=== PATIENT | female | born 1960 | race Caucasian/White ===

== ENCOUNTER 2021-03-07 10:43 | Outpatient (REF) | payer BC, SELFPAY ==
--- NOTE | ~2021-03-07 | MM_ITS ---
EXAMINATION: MM SCREENING DIGITAL BREAST TOMOSYNTHESIS, BILATERAL CLINICAL INFORMATION: Screening. Asymptomatic. The lifetime risk of breast cancer based on the Tyrer-Cuzick Model is 12%. COMPARISON: Mammography: 02/23/2020, 01/30/2019, 01/08/2018, 11/28/2016 TECHNIQUE: Digital breast tomosynthesis is performed in both the craniocaudal and mediolateral oblique views along with computer-aided detection (CAD). Synthesized 2D images are generated from the tomosynthesis. FINDINGS: There are scattered areas of fibroglandular density (ACR BI-RADS breast composition Category b). There are no significant masses, abnormal calcifications, or other abnormalities. There are tightly grouped chronic coarse calcifications right axilla again noted, possibly dermal, similar to prior studies. Skin contours are smooth. No significant changes. MM/MM tomosynthesis screening BI IMPRESSION: No significant changes from prior exams. ASSESSMENT: BI-RADS 2: Benign RECOMMENDATION: Routine annual mammography screening. This patient's information was entered into a reminder system with a target due date for their next mammogram.
== END 2021-03-07 10:44 | disposition home or self-care (01) ==
LOC: HO.MAMMO 10:43
PROVIDERS: Visit Provider Internal Medicine
DX: Z12.31 Encounter for screening mammogram for malignant neoplasm of breast (principal)
CPT/HCPCS: 77063; 77067

== ENCOUNTER 2021-07-01 12:33 | Outpatient (REF) | payer BC, SELFPAY ==
[2021-07-01 13:53] LABS: MANUAL DIFF FLAG NO
[2021-07-01 13:55] LABS: Appearance Urine CLEAR; Color Urine YELLOW; Glucose Urine UA NEG (NEG); Leukocyte Esterase Urine NEG (NEG); Nitrite Urine NEG (NEG); Specific Gravity - Urine 1.025 (1.005-1.025); Urine Blood NEG (NEG); Urine Ketones NEG (NEG); Urine Protein NEG (NEG-TRACE)
[2021-07-01 14:02] LABS: Basophils Percent Auto 0.9 % (0-2); Eosinophils Absolute Auto 0.2 X10*3/uL (0.0-0.4); Eosinophils Percent Auto 4.3 % (0-4); Hematocrit 36.9 % (37.0-47.0); Hemoglobin 12.2 g/dl (12.0-16.0); Imm Gran Abs Auto 0.02 X10*3/uL (0.00-0.03); Imm Gran Pct Auto 0.5 % (0.0-0.4); Lymphocytes Absolute Auto 1.6 X10*3/uL (1.2-4.9); Lymphocytes Percent Auto 35.8 % (20-40); Mean Corpuscular HGB Conc 33.1 g/dl (31.0-35.0); Mean Corpuscular Hemoglobin 29.3 pg (27.0-33.0); Mean Corpuscular Volume 88.5 fL (80.0-98.0); Mean Platelet Volume 9.5 fL (9.4-12.3); Monocytes Absolute Auto 0.4 X10*3/uL (0.1-1.2); Neutrophils Absolute Auto 2.2 x10*3/uL (2.0-8.3); Neutrophils Percent Auto 50.5 % (45-73); Platelet Count 255 X10*3/uL (160-400); Red Blood Count 4.17 X10*6/uL (4.20-5.50); Red Cell Distribution Width 11.8 % (11.0-16.0); White Blood Count 4.4 X10*3/uL (4.8-10.8)
[2021-07-01 14:28] LABS: Alanine Aminotransferase 14 U/L (0-31); Albumin Level 4.2 g/dL (3.5-5.0); Alkaline Phosphatase 56 U/L (39-117); Anion Gap 11 (12-20); Aspartate Amino Transferase 21 U/L (5-31); Bilirubin Total 0.4 mg/dL (0.0-1.0); Blood Urea Nitrogen 11 mg/dL (9-16); Calcium 9.3 mg/dL (8.4-10.2); Carbon Dioxide 27 mmol/L (22-29); Chloride 107 mmol/L (96-108); Cholesterol 206 mg/dL; Estimated Glomerular Filt Rate > 60; Glucose Fasting 75 mg/dL (60-99); Sodium 141 mmol/L (135-145); Total Protein 6.9 g/dL (6.5-8.0); Triglycerides 61 mg/dL
[2021-07-01 14:36] LABS: Free T4 (Free Thyroxine) 1.06 ng/dL (0.71-1.85); Thyroid Stimulating Hormone 0.93 uIU/mL (0.32-4.0); Vitamin D 25-OH Total 28.9 ng/mL (>30)
[2021-07-01 14:41] LABS: HDL Cholesterol 58 mg/dL; LDL Cholesterol Calculated 136 mg/dl
== END 2021-07-01 12:34 | disposition home or self-care (01) ==
LOC: HO.10HDL 12:33
PROVIDERS: Visit Provider Internal Medicine
DX: Z00.00 Encounter for general adult medical examination without abnormal findings (principal); E03.9 Hypothyroidism, unspecified; D64.9 Anemia, unspecified; K21.9 Gastro-esophageal reflux disease without esophagitis
CPT/HCPCS: 36415; 80053; 80061; 81003; 82306; 84439; 84443; 85025

== ENCOUNTER 2022-03-09 10:14 | Outpatient (REF) | payer BC, SELFPAY ==
--- NOTE | ~2022-03-09 | MM_ITS ---
EXAMINATION: MM SCREENING DIGITAL BREAST TOMOSYNTHESIS, BILATERAL CLINICAL INFORMATION: Screening. Asymptomatic. The lifetime risk of breast cancer based on the Tyrer-Cuzick Model is 16%. COMPARISON: Mammography: 03/07/2021, 02/23/2020, 01/30/2019 TECHNIQUE: Digital breast tomosynthesis is performed in both the craniocaudal and mediolateral oblique views along with computer-aided detection (CAD). Synthesized 2D images are generated from the tomosynthesis. FINDINGS: There are scattered areas of fibroglandular density (ACR BI-RADS breast composition Category b). There are no significant masses, abnormal calcifications, or other abnormalities. Parenchymal pattern is similar to prior exams. There are tightly grouped chronic coarse calcifications again seen overlying right axilla, possibly dermal. The skin contours are smooth. There are no significant changes. MM/MM tomosynthesis screening BI IMPRESSION: No mammographic evidence of malignancy. ASSESSMENT: BI-RADS 2: Benign RECOMMENDATION: Routine annual mammography screening. This patient's information was entered into a reminder system with a target due date for their next mammogram.
== END 2022-03-09 10:15 | disposition home or self-care (01) ==
LOC: HO.MAMMO 10:14
PROVIDERS: Visit Provider Internal Medicine
DX: Z12.31 Encounter for screening mammogram for malignant neoplasm of breast (principal)
CPT/HCPCS: 77063; 77067

== ENCOUNTER 2022-05-24 16:23 | Outpatient (REF) | payer BC, SELFPAY ==
--- NOTE | ~2022-05-24 | XR_ITS ---
EXAMINATION: XR SHOULDER, RIGHT CLINICAL INFORMATION: Pain COMPARISON: Previous x-ray September 2015 TECHNIQUE: AP external rotation, Grashey, scapular Y, and axillary views of the right shoulder. FINDINGS: Bone alignment is normal. No fracture or dislocation. Small inferior osteophyte at the glenohumeral joint. Mild arthritis at the acromioclavicular joint with joint space narrowing and osteophyte formation. Normal soft tissues. XR/XR shoulder RT min 2V IMPRESSION: Mild degenerative changes.
== END 2022-05-24 16:24 | disposition home or self-care (01) ==
LOC: HO.XRAY 16:23
PROVIDERS: PCP Internal Medicine; Visit Provider Internal Medicine
DX: M25.511 Pain in right shoulder (principal)
CPT/HCPCS: 73030

== ENCOUNTER 2022-07-26 10:10 | Outpatient (REF) | payer BC, SELFPAY ==
[2022-07-26 10:21] LABS: MANUAL DIFF FLAG NO
[2022-07-26 10:46] LABS: Basophils Percent Auto 0.8 % (0-2); Eosinophils Absolute Auto 0.3 X10*3/uL (0.0-0.4); Eosinophils Percent Auto 6.7 % (0-4); Hematocrit 37.5 % (37.0-47.0); Hemoglobin 12.4 g/dl (12.0-16.0); Imm Gran Abs Auto 0.01 X10*3/uL (0.00-0.03); Imm Gran Pct Auto 0.2 % (0.0-0.4); Lymphocytes Absolute Auto 1.7 X10*3/uL (1.2-4.9); Lymphocytes Percent Auto 35.9 % (20-40); Mean Corpuscular HGB Conc 33.1 g/dl (31.0-35.0); Mean Corpuscular Hemoglobin 29.1 pg (27.0-33.0); Mean Platelet Volume 8.6 fL (9.4-12.3); Monocytes Absolute Auto 0.4 X10*3/uL (0.1-1.2); Neutrophils Absolute Auto 2.3 x10*3/uL (2.0-8.3); Neutrophils Percent Auto 48.4 % (45-73); Platelet Count 249 X10*3/uL (160-400); Red Blood Count 4.26 X10*6/uL (4.20-5.50); Red Cell Distribution Width 11.9 % (11.0-16.0); White Blood Count 4.8 X10*3/uL (4.8-10.8)
[2022-07-26 11:14] LABS: Alanine Aminotransferase 13 U/L (0-31); Albumin Level 4.4 g/dL (3.5-5.0); Alkaline Phosphatase 59 U/L (39-117); Anion Gap 9 (12-20); Aspartate Amino Transferase 22 U/L (5-31); Bilirubin Total 0.3 mg/dL (0.0-1.0); Blood Urea Nitrogen 14 mg/dL (9-16); Calcium 9.5 mg/dL (8.4-10.2); Carbon Dioxide 30 mmol/L (22-29); Chloride 106 mmol/L (96-108); Cholesterol 236 mg/dL; Estimated Glomerular Filt Rate > 60; Glucose Fasting 79 mg/dL (60-99); HDL Cholesterol 60 mg/dL; LDL Cholesterol Calculated 162 mg/dl; Potassium 4.1 mmol/L (3.3-5.1); Sodium 141 mmol/L (135-145); Total Protein 7.2 g/dL (6.5-8.0); Triglycerides 73 mg/dL
[2022-07-26 11:30] LABS: Thyroid Stimulating Hormone 1.69 uIU/mL (0.32-4.0)
== END 2022-07-26 10:11 | disposition home or self-care (01) ==
LOC: HO.LAB 10:10
PROVIDERS: PCP Internal Medicine; Visit Provider Internal Medicine
DX: Z00.00 Encounter for general adult medical examination without abnormal findings (principal); E03.9 Hypothyroidism, unspecified
CPT/HCPCS: 36415; 80053; 80061; 84439; 84443; 85025

== ENCOUNTER 2022-10-04 07:13 | Day surgery (SDC) | payer BC, SELFPAY ==
--- NOTE | 2022-10-03 09:55 | HO.ANESPROP2 ---
Documented by User: Angela Muñoz NP 10/03/22 09:57 HPI - Anesthesia Eval Consult details Narrative: 61yo F for Upper Endoscopy and Colonoscopy [facility] Past Medical History Medical History (Updated 10/04/22 @ 07:23 by Di Wilkerson) Acephalgic migraine Asthma GERD (gastroesophageal reflux disease) Hiatal hernia Hx of sigmoidoscopy Hypothyroidism Irritable bowel disease Lipoma of arm Surgical History Surgical History (Updated 10/04/22 @ 07:23 by Di Wilkerson) History of bunionectomy History of nasal surgery Hx of colonoscopy Hx of endoscopy Hx of knee surgery Hx of tonsillectomy Social History Social History Patient Tobacco Use Status: Never used Tobacco Use of substances other than those prescribed or required for medical reasons: No Are you DNR?: No Advance Directives: No Advance Directives Information Provided: Yes Meds Allergies Allergy/AdvReac Type Severity Reaction Status Date / Time adhesive tape Allergy Unknown Rash Verified 10/04/22 07:28 Chocolate Allergy Unknown Itching Verified 10/04/22 07:28 melon Allergy Unknown Itching Verified 10/04/22 07:28 raw vegetable Allergy Unknown Itching Verified 10/04/22 07:28 Home Medications Medication Instructions Recorded Confirmed Last Taken Type Glucosamine 1 tab PO DAILY 10/03/22 10/04/22 Unknown History Nexium 1 tab PO USEASDIRECTD 10/03/22 10/04/22 Unknown History Zyrtec 1 tab PO DAILY 10/03/22 10/04/22 Unknown History aspirin 1 tab PO DAILY 10/03/22 10/04/22 09/27/22 History famotidine 1 tab PO BID 10/03/22 10/04/22 Unknown History hyoscyamine sulfate 0.125 mg 1 tab sublingual Q4H 10/03/22 10/04/22 Unknown History sublingual tablet levothyroxine 88 mcg tablet 1 tab PO DAILY 10/03/22 10/04/22 Unknown History (Synthroid) montelukast 10 mg tablet 1 tab PO DAILY 10/03/22 10/04/22 Unknown History Exam Exam Date and Time: October 03, 2022 09 Pertinent Lab Results Pertinent Lab Results: Laboratory Tests 07/26/22 07/26/22 10:19 10:19 WBC 4.8 Hgb 12.4 Hct 37.5 Plt Count 249 Sodium 141 Potassium 4.1 Chloride 106 Carbon Dioxide 30 H BUN 14 Creatinine 0.75 Assessment and Plan Assessment Anesthesia Assessment: Chart Reviewed Documented by User: Dyllan Ricardo MD 10/04/22 16:09 [facility] Past Medical History Medical History (Updated 10/04/22 @ 07:23 by Di Wilkerson) Acephalgic migraine Asthma GERD (gastroesophageal reflux disease) Hiatal hernia Hx of sigmoidoscopy Hypothyroidism Irritable bowel disease Lipoma of arm Functional capacity: independent ambulation Family History Family history of problems with anesthesia: No Surgical History Surgical History (Updated 10/04/22 @ 07:23 by Di Wilkerson) History of bunionectomy History of nasal surgery Hx of colonoscopy Hx of endoscopy Hx of knee surgery Hx of tonsillectomy History of Problems with Anesthesia: No Social History Social History Patient Tobacco Use Status: Never used Tobacco Use of substances other than those prescribed or required for medical reasons: No Are you DNR?: No Advance Directives: No Advance Directives Information Provided: Yes Meds Allergies Allergy/AdvReac Type Severity Reaction Status Date / Time adhesive tape Allergy Unknown Rash Verified 10/04/22 07:28 Chocolate Allergy Unknown Itching Verified 10/04/22 07:28 melon Allergy Unknown Itching Verified 10/04/22 07:28 raw vegetable Allergy Unknown Itching Verified 10/04/22 07:28 Home Medications Medication Instructions Recorded Confirmed Last Taken Type Glucosamine 1 tab PO DAILY 10/03/22 10/04/22 Unknown History Nexium 1 tab PO USEASDIRECTD 10/03/22 10/04/22 Unknown History Zyrtec 1 tab PO DAILY 10/03/22 10/04/22 Unknown History aspirin 1 tab PO DAILY 10/03/22 10/04/22 09/27/22 History famotidine 1 tab PO BID 10/03/22 10/04/22 Unknown History hyoscyamine sulfate 0.125 mg 1 tab sublingual Q4H 10/03/22 10/04/22 Unknown History sublingual tablet levothyroxine 88 mcg tablet 1 tab PO DAILY 10/03/22 10/04/22 Unknown History (Synthroid) montelukast 10 mg tablet 1 tab PO DAILY 10/03/22 10/04/22 Unknown History Exam Airway Mallampati Class: II TM Dist: >3cm Neck ROM: Full Loose/Missing/Broken Teeth: Yes ([place] , fillings ) Heart: S1,S2 Lungs: b/l breath sounds Assessment and Plan Assessment Anesthesia Assessment: Anesthesia Plan Discussed Final Anesthetic Review Family History of Problems with Anesthesia: No History of Problems with Anesthesia: No NPO: Yes ASA Class: II Final Preanesthetic Review: Meds/Allgs Chart Reviewed, Consent Obtained/Reviewed and Anes Risks/Benef Reviewed Patient Risk: Intermediate Procedure Risk: Intermediate Anesthetic Plan Anesthetic Plan: MAC: Disposition: Standard PACU
[2022-10-04 07:30] VITALS: BMI 22.3
[2022-10-04 07:38] VITALS: BP 123/75; PULSE 73; RESP 16; TEMP 36.1; O2SAT 97
[2022-10-04] MEDS: Lactated Ringers 1,000 ML 100 ML IVCONT (07:57)
[2022-10-04 09:54] VITALS: BP 102/64; PULSE 72; RESP 16; TEMP 36.6; O2SAT 98
--- NOTE | 2022-10-04 09:55 | P.BOP_ITS ---
Brief Operative Note Date of Service: 10/04/22 Pre-op diagnosis: GERD, Screening Post-op diagnosis: other (Hiatal hernia, Diverticulosis) Procedure: EGD with biopsies, Colonoscopy to the cecum Surgeon: Armando Barboza Anesthesia: MAC Was an Admission Specialist used for this Procedure?: No Estimated blood loss (mL): 2.0 Pathology: other (A. EG Junction at 38cm) Condition: stable Disposition: PACU
[2022-10-04 10:09] VITALS: BP 118/64; PULSE 69; RESP 16; TEMP 36.6; O2SAT 100
--- NOTE | 2022-10-04 20:24 | OP_ITS ---
SURGEON: Armando Barboza MD INDICATIONS: The patient presents for evaluation of gastroesophageal reflux and colorectal cancer screening. Full consent has been obtained from her for this, including risks of bleeding and perforation. PREOPERATIVE DIAGNOSIS: POSTOPERATIVE DIAGNOSIS: PROCEDURE PERFORMED: Esophagogastroduodenoscopy with biopsies, and colonoscopy to the cecum. ESTIMATED BLOOD LOSS: COMPLICATIONS: ANESTHESIA: Medication used, monitored anesthesia care. ASSISTANTS: SPECIMENS: PREOPERATIVE DIAGNOSES: Gastroesophageal reflux and colorectal cancer screening. POSTOPERATIVE DIAGNOSES: Gastroesophageal reflux and colorectal cancer screening, small hiatal hernia, mild diverticulosis, and small internal hemorrhoids. DESCRIPTION OF PROCEDURE: The patient was placed in the left lateral decubitus position. The Olympus video gastroscope was passed in the posterior oropharynx and upper esophagus under direct vision. The scope was passed slowly to the distal esophagus. The gastroesophageal junction appeared at 38 cm. There is very minimal irregularity consistent with reflux, but no evidence of esophagitis nor Lopez's mucosa. There is a small hiatal hernia. The scope was advanced to the pylorus and the duodenum was cannulated to the descending portion. The duodenum including the bulb appeared normal without mass or ulceration. The scope was withdrawn back into the stomach. The gastric antrum and body appeared normal with good peristalsis. The scope was retroflexed visualizing the proximal stomach carefully, which appeared normal, without any sign of mass or ulceration. The scope was straightened out and withdrawn back in the esophagus. Biopsies were obtained at the EG junction at 38 cm. Proximal to that, the esophageal mucosa appeared normal. The scope was withdrawn from the patient. She was turned around for the colonoscopy. The digital rectal exam revealed no abnormalities. The Olympus video pediatric colonoscope was entered into the rectum and advanced easily to the cecum. Once in the cecum, I did identify normal-appearing cecal pouch with appendiceal orifice and a normal-appearing ileocecal valve. The entire cecum and ileocecal valve appeared normal. There was transillumination of light deep in the right lower quadrant. The scope was slowly withdrawn assessing all mucosal surfaces carefully. Preparation was excellent. I did not visualize any sign of polyps, colitis nor angiodysplasia. There was a mild amount of sigmoid diverticulosis. In the rectum, the scope was retroflexed visualizing small internal hemorrhoids, but no other pathology. The rectal mucosa appeared normal. The scope was straightened out and withdrawn from the patient. She tolerated the procedures well and was returned to the recovery area in stable condition. IMPRESSION: 1. Small hiatal hernia, gastroesophageal reflux. 2. Mild diverticulosis. 3. Small internal hemorrhoids. PLAN: The results of the biopsies will be checked. She has been advised that she could continue her Nexium or famotidine for reflux on a long-term basis. She will continue hyoscyamine for the irritable bowel syndrome. I would recommend a repeat colonoscopy in 10 years for further screening. She will otherwise see me on a p.r.n. basis. This has been discussed with her . MD GABINO Jara/VIANNEY / [id number] MTDD
== END 2022-10-04 10:56 | disposition home or self-care (01) ==
PROVIDERS: PCP Internal Medicine; Visit Provider Internal Medicine
PROC: (CPT 45378; principal; 2022-10-04 08:30)
DX: Z12.11 Encounter for screening for malignant neoplasm of colon (principal); Z83.71 Family history of colonic polyps; K57.30 Diverticulosis of large intestine without perforation or abscess without bleeding; K64.8 Other hemorrhoids; K21.9 Gastro-esophageal reflux disease without esophagitis; K44.9 Diaphragmatic hernia without obstruction or gangrene; K58.9 Irritable bowel syndrome, unspecified; E03.9 Hypothyroidism, unspecified; G43.809 Other migraine, not intractable, without status migrainosus; J45.909 Unspecified asthma, uncomplicated; Z79.51 Long term (current) use of inhaled steroids; Z79.82 Long term (current) use of aspirin; Z79.899 Other long term (current) drug therapy; L23.1 Allergic contact dermatitis due to adhesives
CPT/HCPCS: 45378; 43239; 88305; J2250

== ENCOUNTER 2023-01-09 09:45 | Outpatient (REF) | payer BC, SELFPAY ==
[2023-01-09 11:00] LABS: Cholesterol 236 mg/dL; HDL Cholesterol 55 mg/dL; LDL Cholesterol Calculated 169 mg/dl; Triglycerides 62 mg/dL
== END 2023-01-09 09:46 | disposition home or self-care (01) ==
LOC: HO.LAB 09:45
PROVIDERS: PCP Internal Medicine; Visit Provider Internal Medicine
DX: E78.00 Pure hypercholesterolemia, unspecified (principal)
CPT/HCPCS: 36415; 80061

== ENCOUNTER 2023-03-21 14:10 | Outpatient (REF) | payer BC, SELFPAY ==
--- NOTE | ~2023-03-21 | MM_ITS ---
EXAMINATION: MM DIAGNOSTIC DIGITAL BREAST TOMOSYNTHESIS, BILATERAL US BREAST LIMITED, RIGHT MAMMOGRAPHY: CLINICAL INFORMATION: 62-year-old female complaining of right breast pain spanning 9:00 through 11:00 axis. Due for bilateral screening exam. COMPARISON: Mammography: 03/09/2022, and dating back to 2014. TECHNIQUE: Digital breast tomosynthesis is performed in both the craniocaudal and mediolateral oblique views along with computer-aided detection (CAD). Synthesized 2D images are generated from the tomosynthesis. FINDINGS: There are scattered areas of fibroglandular density (ACR BI-RADS breast composition Category b). There are no suspicious masses, suspicious grouped calcifications, or areas of architectural distortion. The parenchymal pattern is stable from prior exams. No mammographic abnormality identified in the right breast in the regions of breast pain spanning 9:00 to 11:00. ULTRASOUND: CLINICAL INFORMATION: 62-year-old female complaining of right breast pain spanning 9:00 through 11:00 axis. COMPARISON: None relevant. TECHNIQUE: Targeted sonographic evaluation right breast was performed using a high frequency linear transducer. Attention was focused on the area of right breast pain in the 9:00 through 11:00 axes. Selected archived documentation. FINDINGS: RIGHT BREAST: There is a mixture of fatty and fibroglandular tissue. No suspicious mass is seen. There is no pathologic acoustic shadowing. There is no ultrasonographic correlate to the region of breast pain in the area as indicated by the patient spanning 9:00 through 11:00. MM/MM tomosynthesis diagnostic BI IMPRESSION: No mammographic or sonographic evidence of malignancy. No ultrasonographic or mammographic correlate to regions of right breast pain. Recommend clinical management of the patient's complaint. OVERALL ASSESSMENT: Mammography: BI-RADS 1 - Negative Ultrasound: BI-RADS 1 - Negative RECOMMENDATION: 1 year F/U Results were provided to the patient at time of visit by the technologist. This patient's information was entered into a reminder system with a target due date for their next mammogram.
== END 2023-03-21 14:11 | disposition home or self-care (01) ==
LOC: HO.MAMMO 14:10
PROVIDERS: Visit Provider Internal Medicine
DX: N64.4 Mastodynia (principal)
CPT/HCPCS: 76642; 77062; 77066

== ENCOUNTER → 2023-03-21 14:30 | Outpatient (BNV) | payer BC, SELFPAY | PROVIDERS: Visit Provider Radiology Diagnostic Radiology | DX: N64.4 Mastodynia (principal) | CPT/HCPCS: 76642; 77062; 77066 ==

== ENCOUNTER 2023-05-18 09:12 | Outpatient (REF) | payer BC, SELFPAY ==
[2023-05-18 10:47] LABS: Cholesterol 229 mg/dL (<200); HDL Cholesterol 65 mg/dL (>40); LDL Cholesterol Calculated 154 mg/dL (<100); Triglycerides 53 mg/dL (<150)
== END 2023-05-18 09:13 | disposition home or self-care (01) ==
LOC: HO.LAB 09:12
PROVIDERS: PCP Internal Medicine; Visit Provider Internal Medicine
DX: E78.00 Pure hypercholesterolemia, unspecified (principal)
CPT/HCPCS: 36415; 80061

== ENCOUNTER 2023-08-23 10:14 | Outpatient (REF) | payer BC, SELFPAY ==
[2023-08-23 12:13] LABS: Cholesterol 206 mg/dL (<200); HDL Cholesterol 67 mg/dL (>40); LDL Cholesterol Calculated 129 mg/dL (<100); Triglycerides 53 mg/dL (<150)
[2023-08-24 14:22] LABS: LDL Cholesterol Direct 126 mg/dL (<100)
== END 2023-08-23 10:15 | disposition home or self-care (01) ==
LOC: HO.LAB 10:14
PROVIDERS: PCP Internal Medicine; Visit Provider Internal Medicine
DX: E55.9 Vitamin D deficiency, unspecified (principal)
CPT/HCPCS: 36415; 80061; 83721

== ENCOUNTER 2023-10-06 10:08 | Outpatient (REF) | payer BC, SELFPAY ==
[2023-10-06 11:28] LABS: Anion Gap 13 (12-20); Blood Urea Nitrogen 15 mg/dL (9-16); Calcium 9.9 mg/dL (8.4-10.2); Carbon Dioxide 29 mmol/L (22-29); Chloride 105 mmol/L (96-108); Estimated Glomerular Filt Rate > 60; Glucose Random 90 mg/dL (60-115); Potassium 4.3 mmol/L (3.3-5.1); Sodium 143 mmol/L (135-145)
[2023-10-06 11:45] LABS: Free T4 (Free Thyroxine) 1.13 ng/dL (0.71-1.85); Thyroid Stimulating Hormone 1.42 uIU/mL (0.32-4.0)
== END 2023-10-06 10:09 | disposition home or self-care (01) ==
LOC: HO.LAB 10:08
PROVIDERS: PCP Internal Medicine; Visit Provider Internal Medicine
DX: E03.9 Hypothyroidism, unspecified (principal)
CPT/HCPCS: 36415; 80048; 84439; 84443

== ENCOUNTER 2023-10-10 11:29 | Outpatient (REF) | payer BC, SELFPAY ==
[2023-10-10 13:31] LABS: MANUAL DIFF FLAG NO
[2023-10-10 13:40] LABS: Basophils Percent Auto 0.8 % (0-2); Eosinophils Absolute Auto 0.1 X10*3/uL (0.0-0.4); Eosinophils Percent Auto 2.4 % (0-4); Hematocrit 37.6 % (37.0-47.0); Hemoglobin 12.6 g/dl (12.0-16.0); Lymphocytes Absolute Auto 1.4 X10*3/uL (1.2-4.9); Lymphocytes Percent Auto 27.9 % (20-40); Mean Corpuscular HGB Conc 33.5 g/dl (31.0-35.0); Mean Corpuscular Hemoglobin 29.9 pg (27.0-33.0); Mean Corpuscular Volume 89.3 fL (80.0-98.0); Mean Platelet Volume 9.9 fL (9.4-12.3); Monocytes Absolute Auto 0.4 X10*3/uL (0.1-1.2); Monocytes Percent Auto 7.7 % (2-11); Neutrophils Percent Auto 61.2 % (45-73); Platelet Count 211 X10*3/uL (160-400); Red Blood Count 4.21 X10*6/uL (4.20-5.50); Red Cell Distribution Width 12.3 % (11.0-16.0)
[2023-10-12 13:03] LABS: Lyme Abs Screen <0.90 index
== END 2023-10-10 11:30 | disposition home or self-care (01) ==
LOC: HO.10HDL 11:29
PROVIDERS: Visit Provider Internal Medicine
DX: T14.8XXA Other injury of unspecified body region, initial encounter (principal); W57.XXXA Bitten or stung by nonvenomous insect and other nonvenomous arthropods, initial encounter
CPT/HCPCS: 36415; 85025; 86617; 86618

== ENCOUNTER 2024-03-06 10:02 | Outpatient (REF) | payer BC, SELFPAY ==
[2024-03-06 11:51] LABS: Cholesterol 201 mg/dL (<200); HDL Cholesterol 65 mg/dL (>40); LDL Cholesterol Calculated 127 mg/dL (<100); Triglycerides 48 mg/dL (<150)
[2024-03-11 21:14] LABS: Apolipoprotein A1 153 mg/dL (>=125)
[2024-03-26 22:18] LABS: Apolipoprotein B 98 mg/dL (<90)
== END 2024-03-06 10:03 | disposition home or self-care (01) ==
LOC: HO.10HDL 10:02
PROVIDERS: Visit Provider Internal Medicine
DX: E78.5 Hyperlipidemia, unspecified (principal); E78.00 Pure hypercholesterolemia, unspecified
CPT/HCPCS: 36415; 80061; 82172

== ENCOUNTER 2024-04-10 11:34 | Outpatient (REF) | payer BC, SELFPAY ==
--- NOTE | ~2024-04-10 | MM_ITS ---
EXAMINATION: MM SCREENING DIGITAL BREAST TOMOSYNTHESIS, BILATERAL CLINICAL INFORMATION: Screening. Asymptomatic. COMPARISON: Mammography: Comparison is made with available priors TECHNIQUE: Digital breast mammography with tomosynthesis is performed in both the craniocaudal and mediolateral oblique views along with computer-aided detection (CAD). FINDINGS: There are scattered areas of fibroglandular density (ACR BI-RADS breast composition Category b). There are no significant masses, abnormal calcifications, or other abnormalities. MM/MM tomosynthesis screening BI IMPRESSION: No mammographic evidence of malignancy. Patient has a strong family history of breast cancer. Consider yearly breast MRI screening surveillance for further evaluation. MRI would need to be ordered by the patient's providing physician. ASSESSMENT: BI-RADS BI-RADS 1 - Negative RECOMMENDATION: Routine annual mammography screening. 1 year F/U This examination should not preclude the clinical evaluation of a suspicious palpable abnormality. This patient's information was entered into a reminder system with a target due date for their next mammogram. Electronically signed by: Matilde Gay DO 04/23/2024 08:21 AM EDT
== END 2024-04-10 11:35 | disposition home or self-care (01) ==
LOC: HO.MAMMO 11:34
PROVIDERS: Absent Provider Obstetrics & Gynecology; PCP Internal Medicine; Visit Provider Internal Medicine
DX: Z12.31 Encounter for screening mammogram for malignant neoplasm of breast (principal)
CPT/HCPCS: 77063; 77067

== ENCOUNTER → 2024-04-10 11:45 | Outpatient (BNV) | payer BC, SELFPAY | PROVIDERS: Absent Provider Obstetrics & Gynecology; PCP Internal Medicine; Visit Provider Internal Medicine | DX: Z12.31 Encounter for screening mammogram for malignant neoplasm of breast (principal) | CPT/HCPCS: 77063; 77067 ==

== ENCOUNTER 2024-10-31 08:54 | Outpatient (AMB) | payer BC, SELFPAY ==
--- NOTE | 2024-10-31 08:57 | MHC.PC.OV ---
Vital Signs 10/31/24 09:07 Height 5 ft 4 in Weight 124 lb BMI 21.3 BP 120/74 Blood Pressure Location Lt brachial Position Sitting Pulse 75 Temp 97.9 F Temp Source Axillary Pulse Oximetry (%) 99 Oxygen Delivery Method Room Air Intake Visit Reasons: Routine Capacitor Inspector Required: No Accompanied by: Self / Same As Patient Allergies adhesive tape Allergy (Unknown, Verified 10/31/24 08:59) Rash Chocolate Allergy (Unknown, Verified 10/31/24 08:59) Itching melon Allergy (Unknown, Verified 10/31/24 08:59) Itching raw vegetable Allergy (Unknown, Verified 10/31/24 08:59) Itching Tobacco use date assessed: 10/31/24 Dental Screening Dental Screen Date: 10/31/24 Did you have a dental visit in the last 12 months?: Yes Did you have a dental problem in the last 6 months where you did not have access to dental care?: No HPI HPI Comments History of Present Illness Details The warren is a 63 year old female with past medical history of hyperlipidemia, hypothyroid, IBS, asthma, presenting for follow up. Last saw PCP in Mar HLD: last LDL 127. On ASA Hypothyroid: On levothyroxine 88mcg daily. GI: Follows with GI. On levsin. On nexium Mammo 03/2024 Colonoscopy 2022- year ROS see HPI PHYSICAL EXAM: GENERAL: Alert and oriented x 3. NAD EYES: EOMI. Anicteric. HENT: Moist mucous membranes. No scleral icterus. No cervical lymphadenopathy. LUNGS: Clear to auscultation bilaterally. CARDIOVASCULAR: Regular rate and rhythm. No murmur. No JVD. ABDOMEN: Soft, non-tender +bs EXTREMITIES: No edema. Non-tender. SKIN: No rashes or lesions. Warm. NEUROLOGIC: No focal neurological deficits. CN II-XII grossly intact PSYCHIATRIC: Cooperative. Appropriate mood and affect [facility] Medical History Lipoma of arm Acephalgic migraine Irritable bowel disease Asthma Hiatal hernia GERD (gastroesophageal reflux disease) Hypothyroidism Hx of sigmoidoscopy Surgical History Hx of tonsillectomy History of bunionectomy History of nasal surgery Hx of knee surgery Hx of colonoscopy Hx of endoscopy Family History Mother No problems noted. Father No problems noted. Social History Housing: House Patient Tobacco Use Status: Never used Tobacco e-Cigarette/Vaping Use: Never Used service: No Current occupational status: retired Cognitive needs: No Hearing needs: No Vision needs: Yes (rx glasses) Questionnaire PHQ-9 Over the last 2 weeks, how often have you been bothered by any of the following problems? 1. Little interest or pleasure in doing things: not at all 2. Feeling down, depressed, or hopeless: not at all 3. Trouble falling or staying asleep, or sleeping too much: not at all 4. Feeling tired or having little energy: not at all 5. Poor appetite or overeating: not at all 6. Feeling bad about yourself - or that you are a failure or have let yourself or your family down: not at all 8. Moving or speaking so slowly that other people could have noticed. Or the opposite - being so fidgety or restless that you have been moving around a lot more than usual: not at all 9. Thoughts that you would be better off or of hurting yourself in some way: not at all Depression Screening Interpretation: Negative Depression Screening Done: Yes 74711 - PHQ-9 Billing: Yes Source: Developed by Drs. Armando Falk, Sonia Harvey, Jadon Flannery and colleagues, with an educational rahul from [employer]. Thrive Questionnaire Date Thrive assessed: 10/31/24 I am a: Patient Within the past 12 months, did the food you bought not last and you didn't have the money to get more?: Never true Within the past 12 months, did you worry whether your food would run out before you got money to buy more?: Never true Do you have trouble paying for medicines?: No Do you have trouble getting transportation to medical appointments?: No Do you have trouble paying your heating and electricity bill?: No Do you have trouble taking care of your child, family member or friend?: No Do you have trouble with day-to-day activities such as bathing, preparing meals, shopping, managing finances, etc.?: No Are you currently unemployed and looking for a job?: No Are you interested in more education?: No THRIVE Score: 0 AUDIT C Alcohol Use Questionnaire (AUDIT-C) 1. How often do you have a drink containing alcohol?: Monthly or less 2. How many drinks containing alcohol do you have on a typical day when you are drinking?: 1 or 2 3. How often do you have six or more drinks on one occasion?: Less than monthly Total Score: 2 SALLY-7 AMB Questionnaire SALLY-7 Date SALLY - 7 assessed: 10/31/24 Feeling nervous, anxious, or on edge: 0 = Not at all Not being able to stop or control worryin = Not at all Worrying too much about different things: 0 = Not at all Trouble relaxin = Not at all Being so restless that it is hard to sit still: 0 = Not at all Becoming easily annoyed or irritable: 0 = Not at all Feeling afraid as if something awful might happen: 0 = Not at all Total SALLY-7 score (0-4 normal; 5-9 mild; 10-14 moderate; 15-21 severe): 0 Source: Developed by Drs. Armando Falk, Sonia Harvey, Jadon Flannery and colleagues, with an educational rahul from [employer]. Physical exam (Primary Care) Vital Signs: Last Vital Signs Temp 97.9 F 10/31/24 09:07 Pulse 75 10/31/24 09:07 BP 120/74 10/31/24 09:07 Pulse Ox 99 10/31/24 09:07 Oxygen Delivery Method Room Air 10/31/24 09:07 BMI result Body Mass Index 21.3 Tobacco/Smoking Status: Tobacco use Status Tobacco use date assessed 10/31/24 10/31/24 09:01 Patient Tobacco Use Status Never used Tobacco 10/31/24 09:01 e-Cigarette/Vaping Use Never Used 10/31/24 09:01 Depression Screening Interpretation: Negative Thrive Assessment: Date of Thrive Assessment Date Thrive assessed 10/31/24 10/31/24 09:01 Coding Level of Care Code New Pt Level 4 (82746) Complex EM visit Add On G2211 Diagnoses Hypothyroidism, unspecified type E03.9 Hypothyroidism type: unspecified Mild intermittent asthma, unspecified whether complicated J45.20 Asthma complication type: unspecified Asthma persistence: intermittent Asthma severity: mild Hyperlipidemia, unspecified hyperlipidemia type E78.5 Hyperlipidemia type: unspecified Irritable bowel syndrome, unspecified type K58.9 Irritable bowel syndrome type: unspecified Gastroesophageal reflux disease, unspecified whether esophagitis present K21.9 Esophagitis presence: esophagitis presence not specified Additional Codes PHQ-9 - 93412 - PHQ-9 Billing: Yes ([id number]) Assessment & Plan Assessment & Plan (1) Hypothyroidism: Code(s): E03.9 - Hypothyroidism, unspecified Category: Medical Qualifiers: Hypothyroidism type: unspecified Qualified Code(s): E03.9 - Hypothyroidism, unspecified (2) Asthma: Code(s): J45.909 - Unspecified asthma, uncomplicated Category: Medical Qualifiers: Asthma complication type: unspecified Asthma persistence: intermittent Asthma severity: mild Qualified Code(s): J45.20 - Mild intermittent asthma, uncomplicated (3) Hyperlipidemia: Code(s): E78.5 - Hyperlipidemia, unspecified Category: Medical Qualifiers: Hyperlipidemia type: unspecified Qualified Code(s): E78.5 - Hyperlipidemia, unspecified (4) Irritable bowel disease: Code(s): K58.9 - Irritable bowel syndrome, unspecified Category: Medical Qualifiers: Irritable bowel syndrome type: unspecified Qualified Code(s): K58.9 - Irritable bowel syndrome, unspecified (5) GERD (gastroesophageal reflux disease): Code(s): K21.9 - Gastro-esophageal reflux disease without esophagitis Category: Medical Qualifiers: Esophagitis presence: esophagitis presence not specified Qualified Code(s): K21.9 - Gastro-esophageal reflux disease without esophagitis Plan 63 y/o to establish Past medical, surgical, social reviewed Hypothyroid. clinically biochemically stable Gi symptoms stable Frequent lyme exposure-doxy prn sent Orders: Orders TSH reflex Free T4 Today E78.5 - Hyperlipidemia, unspecified MM screening mammo BI 5 Months Z12.31 - Encounter for screening mammogram for malignant neoplasm of breast Complete Blood Count Auto Diff 6 Months E78.5 - Hyperlipidemia, unspecified Lipid Panel 6 Months E78.5 - Hyperlipidemia, unspecified Comprehensive Met. Panel 6 Months E78.5 - Hyperlipidemia, unspecified MMR IgG Measles Mumps Rubella Today Z13.0 - Encounter for screening for diseases of the blood and blood-forming organs and certain disorders involving the immune mechanism, Z13.228 - Encounter for screening for other metabolic disorders, Z13.29 - Encounter for screening for other suspected endocrine disorder Medications: New doxycycline hyclate 200 mg (2 x 100 mg) PO ONCE PRN 10 tabs 0RF tick bite
[2024-10-31 09:07] VITALS: BP 120/74; PULSE 75; TEMP 36.6; O2SAT 99; BMI 21.3
--- OUTSIDE RECORDS SUMMARY | 2024-10-31 09:09 | XMS_ITS ---
Author Name [facility] Organization Unknown Allergies Allergen Reaction Severity Comment Documented Date Source Statu s SULFUR DIOXIDE ENS_PODCRCT Problems Problem Status Onset Date Problem Type Date of Resolution Source Other bursal cyst, right ankle and foot active 2024-05-19 EncounterDiagnosisAct ENS_ PODCRCT Verruca plantaris active 2020-11-15 ProblemAct ENS_PODCRCT Heel pain active 2020-11-15 ProblemAct ENS_PODC RCT Care Team Organization Name Specialty Phone Email Start Date End [facility] 12/23/2022 [facility]
--- OUTSIDE RECORDS SUMMARY | 2024-10-31 09:09 | XMS_ITS ---
Author Organization [facility] Address [address] [place] [id number] Care Team Providers Care Aircraft Dispatcher Name Role Phone Kuliwnder Garcia MD Primary Care Provider Armando Ventura [phone] REASON FOR VISIT nexium refill Encounters Encounter Location Date Provider Diagnosis [facility] [address] [place] [id number] 07/27/2023 Armando Barboza Plan Of Treatment No Information Progress Notes * SCOTT PETERSEN MDOB:[birth year] (62 yo F)Acc No.[id number]:07/27/2023 Patient:?SCOTT PETERSEN :1960???Age:62 Y???Sex:Female Address:[address] [place] [address] * true * Date:? Generated for Toribio butler/Krystal/eTransmitting on:?10/31/2024 09:09 AM EDT
--- OUTSIDE RECORDS SUMMARY | 2024-10-31 09:09 | XMS_ITS | Patient Health Record ---
Author Organization [facility] Address [address] [place] [address] Care Team Providers Care School Child Care Attendant Name Role Phone Kulwinder Garcia MD Primary Care Provider Armando Ventura Unavailable [phone] Allergies Allergen (clinical drug ingredient) Drug/Non Drug Allergy documented on EMR Reaction Allergy Type Onset Date Status Adhesive Tape Unknown Drug Allergy Act sakshi Melon melon (uncoded) Unknown Allergy Acti ve some raw vegetables (uncoded) Unknown Allergy Active CHOCOLATE (uncoded) Unknown Allergy Active Reason For Referral No Information Medications Medication SIG (Take, Route, Frequency, Duration) Notes Start Date End Date Status Hyoscyamine Sulfate 0.125 MG 3 TABLETS ON TONGUE AND ALLOW TO DISSOLVE TWICE DAILY NEEDED FOR ABDOMINAL DISCOMFORT OR CRAMPS for 90 Active Pepcid Not-Taking NexIUM 40 MG 1 capsule Orally Once a day for 30 day(s) 1 every 4th day as of the 07/2022 OV Active Famotidine 20 MG 1 Orally Twice a day Active Synthroid 88 MCG Oral for 90 A ctive Hyoscyamine Sulfate 0.125 MG 3 tablet on the tongue and allow to dissolve as needed Sublingual Twice a day for abdominal cramps/discomfort for 90 days 08/08/2022 Active Omeprazole 20 MG 1 capsule Orally Once a day for 90 days 04/08/2018 Not-Taking Singulair Active Glucosamine 500 MG 1 capsule with a meal Orally Once a day Active Fiber Active Aspirin 81 Active ZyrTEC Allergy Activ e Melatonin Active Immunizations Vaccine Route Administration Date Status Comme nts Influenza Unknown 04/22/2022 Administered Problems Problem Type SNOMED Code ICD Code Onset Dates Problem Status W/U Status Risk Notes Problem 156563186 Colon cancer screening (Z12.11) Active confirmed Problem 87379272 Epigastric abdominal pain (R10.13) Active confirmed Problem Diverticular disease of colon (257177028) Diverticulosis of large intestine without perforation or abscess without bleeding (K57.30) Active confirmed Problem Gastroesophageal reflux disease without esophagitis (956653474) Gastroesophageal reflux disease without esophagitis (K21.9) Active confirmed Problem 060349131 Gastroesophageal reflux disease, esophagitis presence not specified (K21.9) Active confirmed Plan Of Treatment Future Test Test Name Order Date COLONOSCOPY 04/18/2012 UPPER GI ENDOSCOPY 10/17/2017 UPPER GI ENDOSCOPY 08/22/2022 COLONOSCOPY 08/22/2022 Insurance Providers Payer Name Payer Address Payer Phone Subscriber Number Group Number Insured Name Patient Relationship to Insured Coverage Start Date Coverage End Date [facility] [address] [place], [place] [id number] [phone] [id number] SCOTT PETERSEN Self - patient is the insured Medical (General) History Medical History History ICD Code Upper endoscopy and sigmoido scopy in 2002-negative for significant esophagitis, celiac disease, colitis, nor tubular adenomas. Hypothyroidism GERD with associated very small hiatal h ernia--EGD in 2002 as above Asthma Denies FL,DM,CVA,renal disease IBS--stable on hyoscyamine Prozac for menopausal sx. Screening colonoscopy in 2011--neg except for a hyperplastic polyp and internal hemorrhoids Acephalgic migraines --no h eadaches--presyncopal symptoms, nausea, chest pain, tachycardia--sees a neurologist--takes an ASA 81mg prn with relief She has had a neg. U/S of e abdomen in 2002 and 2009, and a negative CAT scan of the abdomen in 2009 as well Her endoscopy in December revealed only a small hiatal hernia, but no esophagitis nor Lopez's esophagus Surgical History Surgery Date(Month/Year) knee surgery nasal surgery bunionectomy tonsillectomy
== END 2024-10-31 09:46 | disposition home or self-care (01) ==
LOC: HO.HMCHD 08:55
PROVIDERS: PCP Internal Medicine; Visit Provider Internal Medicine
DX: E03.9 Hypothyroidism, unspecified (principal); J45.20 Mild intermittent asthma, uncomplicated; E78.5 Hyperlipidemia, unspecified; K58.9 Irritable bowel syndrome, unspecified; K21.9 Gastro-esophageal reflux disease without esophagitis

== ENCOUNTER 2024-10-31 09:44 | Outpatient (REF) | payer BC, SELFPAY ==
[2024-10-31 11:41] LABS: TSH reflex Free T4 1.53 uIU/mL (0.32-4.0)
[2024-11-03 14:08] LABS: Mumps Virus IgG Antibody >300.00 AU/mL
== END 2024-10-31 09:45 | disposition home or self-care (01) ==
LOC: HO.10HDL 09:44
PROVIDERS: Visit Provider Internal Medicine
DX: E78.5 Hyperlipidemia, unspecified (principal); E03.9 Hypothyroidism, unspecified; J45.20 Mild intermittent asthma, uncomplicated; K58.9 Irritable bowel syndrome, unspecified; K21.9 Gastro-esophageal reflux disease without esophagitis
CPT/HCPCS: 36415; 84443; 86735; 86762; 86765; 96127

== ENCOUNTER 2025-04-16 11:04 | Outpatient (REF) | payer BC, SELFPAY ==
--- OUTSIDE RECORDS SUMMARY | 2012-05-03 | XMS_ITS | Encounter Summary ---
Author Organization [facility] Address [address] [place] [phone] Phone Care Team Providers Care Solution Designer Name Role Phone Unavailable Primary Care Provider Unavailabl e Encounter Details Date Type Department Care Team (Late st Contact Info) Description 05/03/2012 Hospital Encounter [facility],Outside Imaging [address] [place] [address] Unknown, Unknown, Social History Tobacco Use Types Packs/Day Years Used Date Smoking Tobacco: Never Passive Smoke Exposure: Never Smokeless Tobacco: Never Alcohol Use Standard Drinks/Week Comments Yes 2 (1 standard drink = 0.6 oz pur e alcohol) Education Answer Date Recorded Are you interested in more education? Not on seth e 11/17/2022 Are you concerned about learning? Not on file 11/17/2022 No 11/17/2022 No 11/17/2022 Digital Access Answer Date Recorded No 12/18/2022 No 12/18/2022 Reliable internet access at home? Not on file 12/18/2022 Device with a working camera? Not on file Intimate Partner Violence Answer Date R ecorded Are you denied basic needs s uch as food, clothing, or medical care? No 09/15/2023 In the past 12 months have y ou been in a relationship with a person who hurts, threatens, or tries to control you? No 09/15/2023 Are you denied basic needs s uch as food, clothing, or medical care? No 09/15/2023 In the past 12 months have y ou been in a relationship with a person who hurts, threatens, or tries to control you? No 09/15/2023 Comments No Sex and Gender Information Value Date Recorded Sex Assigned at Not on file Legal Sex Female 9:46 PM EDT Gender Identity Not on file Sexual Orientation Not on file documented as of this encounter Functional Status * Calculated C-SSRS Risk Score (Lifetime/Recent) Answer Date of Assessment Author No Risk Indicated 09/15/2023 8:12 PM Sophia Rodriguez RN * [place] Suicide Severity Rating Scale (Screener/Recent Self-Report) Question Answer Date of Assessment Author 1. Wish to be (Past 1 Month) No 09/15/2023 8:12 PM Sophia Rodriguez RN 2. Non-Specific Active Suici christi Thoughts (Past 1 Month) No 09/15/2023 8:12 PM Kraig Rodriguez RN 6. Suicidal Behavior (Lifetime) No 8:12 PM Sophia Rodriguez RN documented as of this encounter Plan of Treatment Upcoming Encounters Date Type Department Care Team (Late st Contact Info) Description 05/26/2025 10:00 AM EST Office Visit [facility] [address] [place] [address] [place] [address] Kevin Arreaga DO [address] [facility], [address] [place] [address] [email or web address] documented as of this encounter Procedures Procedure Name Priority Date/Time Associated Diagnosis Comments MRI BRAIN OUTSIDE (NO INTERPRETATION) Routine 05/03/2012 12:00 AM EDT documented in this encounter Results * MRI Brain Outside (No Interpretation) (05/03/2012 12:00 AM EDT) Narrative Record, 10/16/2023 4:00 PM EDT This study is for PACS storage only and not for interpretation. Procedure Note Record, 10/16/2023 This study is for PACS storage only and not for interpretation. us Unknown Unknown MD IMG OUTSIDE IMAGING W/OUT INT ERPRETATION Final Result documented in this encounter Visit Diagnoses Not on filedocumented in this encounter Additional Source Comments The information contained in this document represents components of the legal health record. It is not the complete legal health record.[facility]
--- OUTSIDE RECORDS SUMMARY | 2025-04-16 15:33 | XMS_ITS ---
Author Name [facility] Organization Unknown Allergies Allergen Reaction Severity Comment Documented Date Source Statu s ADHESIVE ENS_PODCRCT SULFUR DIOXIDE ENS_PODCRCT Problems Problem Status Onset Date Problem Type Date of Resolution Source Other bursal cyst, right ankle and foot active 2024-05-19 EncounterDiagnosisAct ENS_ PODCRCT Verruca plantaris active 2020-11-15 ProblemAct ENS_PODCRCT Heel pain active 2020-11-15 ProblemAct ENS_PODC RCT Care Team Organization Name Specialty Phone Email Start Date End [facility] 12/23/2022 [facility] K[facility]
--- OUTSIDE RECORDS SUMMARY | 2025-04-16 15:33 | XMS_ITS | Encounter Summary ---
Author Organization [facility] Address [address] [facility] [address] [place] [phone] Phone Care Team Providers Care Brim Raiser Name Role Phone Kulwinder Garcia MD Primary Care Provider Kevin Arreaga DO Primary Care Provider Encounter Details Date Type Department Care Team (Late Contact Info) Description 10/29/2020 Ancillary Orders [facility]Outside Imaging [address] [place] [address] System, Provider Not In, PhD [address] [address] Social History Tobacco Use Types Packs/Day Years Used Date Smoking Tobacco: Never Smokeless Tobacco: Never Alcohol Use Standard Drinks/Week Comments Yes 0 (1 standard drink = 0.6 oz pur e alcohol) Comments No Sex and Gender Information Value Date Recorded Sex Assigned at Not on file Legal Sex Female 9:46 PM EDT Gender Identity Not on file Sexual Orientation Not on file documented as of this encounter Plan of Treatment Upcoming Encounters Date Type Department Care Team (Late Contact Info) Description 05/26/2025 10:00 AM EST Office Visit [facility] [address] [place] [address] [place] [address] Kevin Arreaga DO [address] [place] [address], [address] [place] [address] [email or web address] documented as of this encounter Visit Diagnoses Not on filedocumented in this encounter Care Teams Brim Raiser Relationship Specialty Start Date End Date Kulwinder Garcia MD [address] [place] [address] [place] [address] PCP - General 07/26/17 02/16/25 Kevin Arreaga DO [address] [place] [address], [address] [place] [address] [email or web address] PCP - General Internal Medicine 02/17/25 documented as of this encounter Additional Source Comments The information contained in this document represents components of the legal health record. It is not the complete legal health record.[facility]
--- OUTSIDE RECORDS SUMMARY | 2025-04-16 15:33 | XMS_ITS | Clinical Summary ---
Author Organization [facility] Address [address] [place] [address] Phone Care Team Providers Care Credit Risk Analyst Name Role Phone ArreagaIrene tothed Garret Primary Care Provider Allergies Active Allergy Reactions Criticality Noted Date Comments Adhesive Dermatitis,Rash Low 08/21/2017 Epinephrine Palpitations High 11/01/2017 Medications albuterol sulfate 90 mcg/actuation AePB 1 puff Active CALCIUM CARB/MAGNESIUM CARB (CALCIUM & MAGNESIUM CARBONATES ORAL) Act sakshi GLUCOSAMINE HCL (GLUCOSAMINE, BULK, MISC) Active multivitamin per tablet Active montelukast (SINGULAIR) 10 mg tablet Take 20 mg by mouth nightly. Active omeprazole (PRILOSEC) 20 mg TbEC Take 20 mg by mouth daily before breakfast. Active famotidine (PEPCID) 20 MG tablet Take 20 mg by mouth 2 (two) times a day. Active hyoscyamine (ANASPAZ,LEVSIN) 0.125 mg tablet 09/11/2020 Act sakshi cetirizine (ZYRTEC) 10 MG tablet Take 10 mg by mouth daily. Active aspirin 81 MG EC tablet Take 81 mg by mouth every other day. Active SYNTHROID 88 mcg tablet Take 88 mcg by mouth daily. 01/29/2025 Active Active Problems No known active problems Encounters Date Type Department Care Team Description 02/17/2025 9:00 AM EDT Office Visit [facility] [address] [place] [address] Bakari Alvares MD Encounter for annual routine gynecological examination (Primary Dx); Breast cancer screening by mammogram; Screening for cervical cancer from Last 3 Months Immunizations Immunization Administration Dates Next Due COVID-19 (Pre-05/14) Pfizer Vaccine, mRNA, PF INFLUENZA, SPLIT VIRUS, TRIVALENT W/ PRESERVATIV E IM 04/22/2022,04/22/2021 Influenza Quadrivalent MDCK Preservative Free IM 05/01/2022 Influenza Quadrivalent Preservative Free IM 04/22 Zoster recombinant 12/18/2021,08/10/2021 Family History Medical History Relation Comments Aneurysm Father Atrial fibrillation Father CV disease Father Stroke Maternal Grandfather Stroke Maternal Grandmother Hyperlipidemia Mother Hypertension Mother Cancer Paternal Aunt CV disease Paternal Grandfather Stroke Paternal Grandfather Stroke Paternal Grandmother Relation Status Comments Father Alive Maternal Grandfather Maternal Grandmother Mother Alive Paternal Aunt Paternal Grandfather Paternal Grandmother Social History Tobacco Use Types Packs/Day Years Used Date Smoking Tobacco: Never Passive Smoke Exposure: Never Smokeless Tobacco: Never Tobacco Cessation:Counseling Given: Not Answered Alcohol Use Standard Drinks/Week Comments Yes 2 [...] on file Sexual Orientation Not on file Last Filed Vital Signs Vital Sign Reading Time Taken Comments Blood Pressure 108/72 02/17/2025 9:06 AM EDT Pulse 78 09/15/2023 10:10 PM EST Temperature 36.7 C (98.1 F) 09/15/2023 10:10 PM EST Respiratory Rate 16 09/15/2023 10:10 PM EST Oxygen Saturation 99% 09/15/2023 10:10 PM EST Inhaled Oxygen Concentration - - Weight 56.2 kg (124 lb) 02/17/2025 9:06 AM EDT Height 162.6 cm (5' 4 ) 02/17/2025 9:06 AM EDT Body Mass Index 21.28 02/17/2025 9:06 AM EDT Plan of Treatment Upcoming Encounters Date Type Department Care Team (Late st Contact Info) Description 05/26/2025 10:00 AM EST Office Visit [facility] [address] [place] [address] Kevin Arreaga DO 170 [facility], [address]nd [place] [address] [email or web address] Health Maintenance Due Date Last Done Comments Adult Td,Tdap Booster 1960 TSH LEVEL 1960 DEPRESSION SCREENING 1973 HEPATITIS C SCREENING 11/24/1979 HIV ONE-TIME SCREENING (18-65 YEARS) 11/24/1979 COLOGUARD 2006 COLONOSCOPY 2006 COLORECTAL CANCER SCREENING 2006 FIT TEST 2006 FOBT 2006 SIGMOIDOSCOPY 2006 VIRTUAL COLONOSCOPY 2006 PNEUMOCOCCAL VACCINES (50+ years) (1 of 1 - PCV) 11/24/2011 LIPID PANEL 07/15/2020 07/15/2015 MAMMOGRAM 03/07/2022 03/07/2021 INFLUENZA VACCINE (#1) 2025 2, 04/22/2022, 04/22/2021, Additional history exists PAP SMEAR 10/25/2026 10/25/2021, 03/27/2017 RSV VACCINE (1 - 1-dose 75+ series) 2036 ZOSTER VACCINES Completed 12/18/2021, 08/10/2021 COVID-19 VACCINE Completed 05/02/2024, , 06/02/2022, Additional history exists SMOKING STATUS SCREENING (Once After 26 Yrs) Completed 02/17/2025 HEPATITIS A VACCINES Aged Out No long er eligible based on patient's age to complete this topic HIB VACCINES Aged Out No longer eligi ble based on patient's age to complete this topic MENINGOCOCCAL VACCINES (ACWY) Aged Out No longer eligible based on patient's age to complete this topic MENINGOCOCCAL VACCINES (B) Aged Out N o longer eligible based on patient's age to complete this topic Medical Devices Not on file Procedures Procedure Name Priority Date/Time Associated Diagnosis Comments PAP TEST Routine 10/25/2021 12:00 AM EDT HM MAMMOGRAPHY Routine 03/07/2021 OUTSIDE LDL Routine 07/15/2015 from Last 3 Months or Most Recently Relevant to Health Maintenance Results * Pap Smear (10/25/2021 12:00 AM EDT) 10/25/2021 10/26/2021 10: 15 AM EDT Narrative SEE NARRATIVE - 10/31/2021 1:57 PM EDT [address] [address] Turbo Operator: Gita Belle MD COMMERCIAL ROOFING ESTIMATOR Cytology Report FINAL DIAGNOSIS A. PAP SMEAR (SUREPATH) CE: SPECIMEN ADEQUACY: Satisfactory for evaluation; transformation zone present. Evaluation limited by scant cellularity. INTERPRETATION: NEGATIVE FOR INTRAEPITHELIAL LESION OR MALIGNANCY. Electronically Signed Out By: MARY KATE Fuentes(ASCP) The Pap test is a screening test primarily for squamous cancers and precursors and has associated false-negative and false-positive results. New technologies such as liquid-based preparations may decrease but will not eliminate all false-negative results. Regular sampling and follow-up of unexplained clinical signs and symptoms are recommended to minimize false negative results. PROCEDURES/ADDENDA HPV Testing (Requested) Ordered Date: 10/26/2021 A. PAP SMEAR (SUREPATH) CE: Human Papilloma Virus Test Negative for high-risk human papillomavirus types 16, 18, 45 and the Other high risk probe set (Includes 31, 33, 35, 39, 51, 52, 56, 58, 59, 66, 68) by Built In Onclarity HR-HPV analysis. Clinical correlation is advised. This HPV test was performed at [facility], [address] [place] [address]. This test has been FDA approved for SurePath cervical cytology specimens. The accuracy and precision of this test for all other specimen sources has been verified in the Cytopathology Laboratory of the [facility] and has not been cleared or approved by the U.S. Food and Drug Administration. Clinical correlation is advised. CLINICAL HISTORY Date of Last Menstrual Period: Not Provided Menstrual History: Post Menopausal Other Clinical Conditions: Screening Pap SPECIMEN SOURCE A: PAP SMEAR (SUREPATH) CE Patient Name: YESSENIA PETERSEN : 1960 (Age: 60) Sex: F Institution: [facility] Location: [facility] Date of Collection: 10/25/2021 Date of Reported: 10/31/2021 13:57 Results to: Bakari Alvares MD, BS us Bakari Alvares MD CYTOLOGY ORDERABLES Final Res ult SEE NARRATIVE * HM MAMMOGRAPHY FOR RESULT ENTRY ONLY (03/07/2021) us Kulwinder Garcia MD HEALTH MAINTENANCE Marcela l Result * Outside LDL (07/15/2015) LDL - External 109 50 - 250 mg/ml us Historical Provider LAB BLOOD ORDERABLES Marcela l Result from Last 3 Months or Most Recently Relevant to Health Maintenance Insurance [facility] PPO EPO [facility] PPO EPO [facility] PPO EPO [facility] PPO EPO [place] [address] [place] [address] [place] [address] [place] [address] PPO EPO PPO EPO [facility] PPO EPO Care Teams Credit Risk Analyst Relationship Specialty Start Date End Date Kevin Arreaga DO [address] [place] [address], [address] [place] [address] [email or web address] PCP - General Internal Medicine 02/17/25 Additional Source Comments The information contained in this document represents components of the legal health record. It is not the complete legal health record.[facility]
--- OUTSIDE RECORDS SUMMARY | 2025-04-16 15:33 | XMS_ITS | Encounter Summary ---
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, unspecified hearing status on contralateral side Procedures MRI Brain CHG MRI BRAIN COMBO CHG MRI BRAIN CHG MRI BRAIN CONTRAST Yokasta Garcia MD Phone: tel: fax: mailto: Referral ID Status Reason Start Date Expiration Date Visits Re quested Visits Authorized [id number] Closed 09/25/2023 2023 1 1 Encounter Details Date Type Department Care Team (Latest Contact Info) Description 10/10/2023 Transcribe Orders Virtual Department [address] [place] [address] Yokasta Garcia MD [address] [place] [address] [address] [place] [address] [email or web address] 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, unspecified hearing status on contralateral side (Primary Dx) Social History Tobacco Use Types Packs/Day Years [...] EST Office Visit [facility] [address] [place] [address] [place] [address] Kevin Arreaga DO 170 [facility], [address] [place] [address] [email or web address] documented as of this encounter Results * MRI BRAIN (INTERNAL AUDITORY CANAL) WITH AND WITHOUT CONTRAST (10/21/2023 1:42 PM EDT) Anatomical Region Laterality Modality Head Magnetic Resonan ce 10/21/2023 8:15 PM EDT Impressions 10/21/2023 10:27 PM EDT No intracranial cause for the reported symptoms identified. No evidence of retrocochlear abnormality. Narrative 10/21/2023 10:27 PM EDT MRI BRAIN (INTERNAL AUDITORY CANAL) WITH AND WITHOUT CONTRAST Referring clinician's provided indication for this examination in [facility]: Outside Radiology Order; sudden idiopathic hearing loss right ear TECHNIQUE: Multi-sequence, multi-planar MRI of the brain including high resolution images of the temporal bones was performed before and after intravenous contrast. COMPARISON: Brain MRI 05/03/2012 FINDINGS: Internal Auditory Canals, Cerebellopontine Angles, and Intracranial 7th and 8th Nerve Complexes: Normal. No cerebellopontine angle or internal auditory canal mass. Inner Ear Structures: Normal. Preserved signal in the labyrinth. No MRI evidence for an inner ear anomaly. Brain Parenchyma: Normal. No evidence of acute infarct, mass lesion, or hemorrhage. Ventricular System and Extra-Axial Spaces: Normal. No evidence of midline shift or hydrocephalus. Miscellaneous: None. Procedure Note Naveen Reese MD - 10/21/2023 MRI BRAIN (INTERNAL AUDITORY CANAL) WITH AND WITHOUT CONTRAST Referring clinician's provided indication for this examination in [facility]:Outside Radiology Order; sudden idiopathic hearing loss right ear TECHNIQUE: Multi-sequence, multi-planar MRI of the brain including highresolution images of the temporal bones was performed before and afterintravenous contrast. COMPARISON: Brain MRI 05/03/2012 FINDINGS: Internal Auditory Canals, Cerebellopontine Angles, and Intracranial 7thand 8th Nerve Complexes: Normal. No cerebellopontine angle or internalauditory canal mass. Inner Ear Structures: Normal. Preserved signal in the labyrinth. No MRIevidence for an inner ear anomaly. Brain Parenchyma: Normal. No evidence of acute infarct, mass lesion, orhemorrhage. Ventricular System and Extra-Axial Spaces: Normal. No evidence of midlineshift or hydrocephalus. Miscellaneous: None. IMPRESSION: No intracranial cause for the reported symptoms identified. No evidence ofretrocochlear abnormality. 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, unspecified hearing status on contralateral side documented in this encounter Care Teams Transportation Supervisor Relationship Specialty Start Date End Date Kulwinder Garcia MD [address] [place] [address] [place] [address] PCP - General 07/26/17 02/16/25 Kevin Arreaga DO [address] [place] [address], [address] [place] [address] [email or web address] PCP - General Internal Medicine 02/17/25 documented as of this encounter Additional Source Comments The information contained in this document represents components of the legal health record. It is not the complete legal health record.[facility]
--- OUTSIDE RECORDS SUMMARY | 2025-04-16 15:33 | XMS_ITS | Encounter Summary ---
Author Organization [facility] Address [address] [place] [address] Phone Care Team Providers Care Garage Door Installer Name Role Phone Kulwinder Garcia MD Primary Care Provider Kevin Arreaga DO Primary Care Provider Encounter Details Date Type Department Care Team (Late st Contact Info) Description 10/10/2023 Procedure Pass [address] [place] [address] Social History Tobacco Use Types Packs/Day Years [...] Description 05/26/2025 10:00 AM EST Office Visit [facility] [address] [place] [address] [place] [address] Kevin Arreaga DO [address] [facility], [address] [place] [address] [email or web address] documented as of this encounter Visit Diagnoses Not on filedocumented in this encounter Care Teams Garage Door Installer Relationship Specialty Start Date End Date Kulwinder Garcia MD [address] [place] [address] [place] [address] PCP - General 07/26/17 02/16/25 Kevin Arreaga DO [address] [place] [address], [address] [place] [address] PCP - General Internal Medicine 02/17/25 documented as of this encounter Additional Source Comments The information contained in this document represents components of the legal health record. It is not the complete legal health record.[facility]
--- OUTSIDE RECORDS SUMMARY | 2025-04-16 15:33 | XMS_ITS | Patient Health Record ---
Author Organization [facility] Address [address] [place] [address] Care Team Providers Care Paper Cup Handle Machine Operator Name Role Phone Jose (RETIRED) Kulwinder RUSSELL Primary Care Provide Armando Schroeder Unavailable [phone] Allergies Allergen (clinical drug ingredient) Drug/Non Drug [...] ABDOMINAL DISCOMFORT OR CRAMPS for 90 Active NexIUM 40 MG 1 capsule Orally Once a day for 30 day(s) 1 every 4th day as of the 07/2022 OV Active Pepcid Not-Taking Famotidine 20 MG 1 Orally Twice a [...] Problem Status W/U Status Risk Notes Problem 846538055 Colon cancer screening (Z12.11) Active confirmed Problem 89513780 Epigastric abdominal pain (R10.13) Active confirmed Problem Diverticular disease of colon (613243657) Diverticulosis of large intestine without perforation or abscess without bleeding (K57.30) Active confirmed Problem Gastroesophageal reflux disease without esophagitis (693833641) Gastroesophageal reflux disease without esophagitis (K21.9) Active confirmed Problem 048693415 Gastroesophageal reflux disease, esophagitis presence not specified (K21.9) Active confirmed Encounters Encounter Location Date Provider Diagnosis [facility] [address] [place] [address] 04/01/2025 Armando Barboza [facility] [address] [place] [address] 04/16/2025 Armando Barboza Plan Of Treatment Future Test Test Name Order Date COLONOSCOPY 04/18/2012 UPPER GI ENDOSCOPY 10/17/2017 UPPER GI ENDOSCOPY 08/22/2022 COLONOSCOPY 08/22/2022 Insurance Providers Payer Name Payer Address Payer Phone Subscriber Number Group Number Insured Name Patient Relationship to Insured Coverage Start Date Coverage End Date [facility] [address] [place], [place] [id number] [phone] [id number] SCOTT PETERSEN Self - patient is the insured Medical (General) History Medical History History ICD Code Upper endoscopy and sigmoido scopy in 2002-negative for significant esophagitis, celiac disease, colitis, nor tubular adenomas. Hypothyroidism GERD with associated very small hiatal h ernia--EGD in 2002 as above Asthma Denies IA,DM,CVA,renal disease IBS--stable on hyoscyamine Prozac for menopausal sx. Screening colonoscopy in 2011--neg except for a hyperplastic polyp and internal hemorrhoids Acephalgic migraines --no h eadaches--presyncopal symptoms, nausea, chest pain, tachycardia--sees a neurologist--takes an ASA 81mg prn with relief She has had a neg. U/S of th e abdomen in 2002 and 2009, and a negative CAT scan of the abdomen in 2009 as well Her endoscopy in December revealed only a small hiatal hernia, but no esophagitis nor Lopez's esophagus Surgical History Surgery Date(Month/Year) knee surgery nasal surgery bunionectomy tonsillectomy
== END 2025-04-16 11:05 | disposition home or self-care (01) ==
LOC: HO.MAMMO 11:04
PROVIDERS: PCP Pediatrics; Visit Provider Pediatrics
DX: Z12.31 Encounter for screening mammogram for malignant neoplasm of breast (principal)
CPT/HCPCS: 77063; 77067

== ENCOUNTER → 2025-04-16 11:15 | Outpatient (BNV) | payer BC, SELFPAY | PROVIDERS: PCP Pediatrics; Visit Provider Internal Medicine | DX: Z12.31 Encounter for screening mammogram for malignant neoplasm of breast (principal) | CPT/HCPCS: 77063; 77067 ==